=== PATIENT | male | born 1995 | race Caucasian/White ===

== ENCOUNTER 2020-04-21 19:02 | Emergency (ER) | payer MEDICAID, OTHER ==
[~2020-04-21] VITALS: Ht 170.2 cm; Wt 79.4 kg
[2020-04-21 19:10] VITALS: BP_SYST 146
[2020-04-21 20:26] LABS: BASOPHILS # (AUTO) 0.1 K/uL (0.0-0.2); EOSINOPHILS # (AUTO) 1.5 K/uL (0.0-0.4); EOSINOPHILS % (AUTO) 18.7 % (0.0-4.0); HEMATOCRIT 42.3 % (36-54); HEMOGLOBIN 14.5 g/dL (14.0-18.0); LYMPHOCYTES # (AUTO) 0.9 K/uL (1.0-5.5); LYMPHOCYTES % (AUTO) 11.7 % (20.5-51.5); MEAN CORPUSCULAR HEMOGLOBIN 30 pg (27-31); MEAN CORPUSCULAR HGB CONC 34 % (32-36); MEAN CORPUSCULAR VOLUME 87 fL (79.0-98.0); MONOCYTES # (AUTO) 0.2 K/uL (0.0-1.0); NEUTROPHILS # (AUTO) 5.2 K/uL (1.8-7.7); NEUTROPHILS % (AUTO) 65.6 % (40.0-70.0); PLATELET COUNT (AUTO) 271 K/uL (130-430); RED BLOOD CELL COUNT(AUTO) 4.88 MIL/uL (4.2-6.2); RED CELL DISTRIBUTION WIDTH 12.9 % (9.0-15.0)
[2020-04-21 20:45] LABS: CALCIUM 9.3 mg/dL (8.4-11.0); CREATININE 0.83 mg/dL (0.55-1.30); POTASSIUM 4.1 mmol/L (3.5-5.1)
[2020-04-21 20:50] LABS: INR 1.1 (0.80-1.20); PROTHROMBIN TIME 10.9 SECS (9.5-12.5)
[2020-04-21 20:51] LABS: TOTAL BILIRUBIN 0.6 mg/dL (0.0-1.0)
[2020-04-21 21:26] VITALS: BP_SYST 128
== END 2020-04-21 21:26 ==
LOC: SED 19:02
DX: R10.9 Unspecified abdominal pain (principal); I10 Essential (primary) hypertension; E11.9 Type 2 diabetes mellitus without complications
CPT/HCPCS: 36415; 80053; 82150-TC; 83605; 83690-TC; 85025; 85610-TC; 85730-TC; 99283

== ENCOUNTER 2022-07-14 13:41 | Emergency (ER) | payer MEDICAID, OTHER ==
[~2022-07-14] VITALS: Ht 170.2 cm; Wt 77.1 kg
--- NOTE | 2022-07-14 14:07 | NUR ---
PT RECVSD FROM , DR WORKMAN BEDSIDE. PT STS 1 WEEK PRIOR HE CLIMBED ON A FENCE AND GOT HIS FOOT STUCK IN IT. PT PRESENTS WITH R LOWER LEG SWELLING AND REDNESS. INFECTION SUSPECTED. PT AAOX4, RESP E&U, SKIN W&D. PT PLACED INTO GAOWN AND LABS TO BE DRAWN
[2022-07-14 14:08] VITALS: BP_SYST 139
--- NOTE | 2022-07-14 14:08 | NUR ---
Patient to ER bed 2 to gown for evaluation. Side rails up. Report given to FLACA SOLIMAN.
[2022-07-14 14:10] VITALS: BP_SYST 113
[2022-07-14 14:50] LABS: BASOPHILS % (AUTO) 0.4 % (0.0-2.0); EOSINOPHILS # (AUTO) 0.4 K/uL (0.0-0.4); EOSINOPHILS % (AUTO) 6.1 % (0.0-4.0); HEMATOCRIT 41.2 % (36-54); HEMOGLOBIN 13.6 g/dL (14.0-18.0); LYMPHOCYTES # (AUTO) 1.6 K/uL (1.0-5.5); LYMPHOCYTES % (AUTO) 23.5 % (20.5-51.5); MEAN CORPUSCULAR HEMOGLOBIN 28 pg (27-31); MEAN CORPUSCULAR HGB CONC 33 % (32-36); MEAN CORPUSCULAR VOLUME 86 fL (79.0-98.0); MONOCYTES # (AUTO) 0.3 K/uL (0.0-1.0); NEUTROPHILS # (AUTO) 4.4 K/uL (1.8-7.7); PLATELET COUNT (AUTO) 278 K/uL (130-430); RED CELL DISTRIBUTION WIDTH 13.9 % (9.0-15.0); WHITE BLOOD COUNT (AUTO) 6.7 K/uL (4.8-10.8)
[2022-07-14 15:06] LABS: ANION GAP 5 (5-15); CHLORIDE 104 mmol/L (98-107); CREATININE 0.82 mg/dL (0.55-1.30); GFR AFRICAN AMERICAN 145 mL/min (>90); GLUCOSE 129 mg/dL (70-99); UREA NITROGEN, BLOOD 15 mg/dL (8-21)
[2022-07-14 15:11] LABS: ALANINE AMINOTRANSFERASE 49 U/L (12-78); ALBUMIN 3.2 g/dL (3.4-4.8); ASPARTATE AMINOTRANSFERASE 21 U/L (10-37); TOTAL BILIRUBIN 0.4 mg/dL (0.0-1.0)
[2022-07-14 15:17] LABS: C-REACTIVE PROTEIN QUANT < 0.2 mg/dL (0-0.5)
[2022-07-14] MEDS ORDERED: CLIN-22 PO (15:39)
--- NOTE | 2022-07-14 16:20 | NUR ---
Patient given written and verbal discharge instructions and verbalizes understanding. ER MD discussed with patient the results and treatment provided. Patient in stable condition. ID arm band removed. IV catheter removed intact and dressing applied, no active bleeding. Rx of CLINDAMYCIN given. Patient educated on pain management and to follow up with PMD. Pain Scale 2. Opportunity for questions provided and answered. Medication side effect fact sheet provided.
[2022-07-14 17:37] VITALS: BP_SYST 121
== END 2022-07-14 16:20 | disposition home or self-care (01) ==
LOC: SED 13:41
DX: L03.116 Cellulitis of left lower limb (principal); M25.572 Pain in left ankle and joints of left foot; E11.9 Type 2 diabetes mellitus without complications; I10 Essential (primary) hypertension; Z79.899 Other long term (current) drug therapy
CPT/HCPCS: 36415; 80053; 83605; 85025; 86140; 99284

== ENCOUNTER 2023-01-09 21:49 | Emergency (ER) | payer OTHER, MEDICAID ==
[~2023-01-09] VITALS: Ht 170.2 cm; Wt 99.8 kg
[~2023-01-09 21:49] MED LIST: CLIN-22 PO
[2023-01-09 22:11] VITALS: BP_SYST 125; PULSE 64; RESP 18; TEMP 97.2; O2SAT 98
[2023-01-09] MEDS ORDERED: IBUPROFEN 600 MG TABLET PO ONE (22:45)
[2023-01-09] MEDS ORDERED: IBUP-1969 PO (22:50)
[2023-01-09 23:09] VITALS: BP_SYST 125; PULSE 64; RESP 18; TEMP 97.2; O2SAT 98
== END 2023-01-09 23:02 | disposition home or self-care (01) ==
LOC: SED 21:49
DX: S90.821A Blister (nonthermal), right foot, initial encounter (principal); S90.822A Blister (nonthermal), left foot, initial encounter; R60.0 Localized edema; E11.9 Type 2 diabetes mellitus without complications; I10 Essential (primary) hypertension; Z79.899 Other long term (current) drug therapy; X58.XXXA Exposure to other specified factors, initial encounter; Y93.89 Activity, other specified; Y92.89 Other specified places as the place of occurrence of the external cause; Y99.8 Other external cause status
CPT/HCPCS: 99282

== ENCOUNTER 2023-02-14 18:48 | Emergency (ER) | payer MEDICAID, OTHER ==
[~2023-02-14] VITALS: Ht 170.2 cm; Wt 97.5 kg
[~2023-02-14 18:48] MED LIST changes: +IBUP-1969 PO
[2023-02-14 19:09] VITALS: BP_SYST 131; PULSE 93; RESP 18; TEMP 97.6; O2SAT 97
[2023-02-14] MEDS ORDERED: METH-776 PO (19:34)
[2023-02-14] MEDS ORDERED: CYPR4TAB50 PO (19:34)
[2023-02-14] MEDS ORDERED: DEXAMETHASONE SOD PHOSPHATE 10 MG/ML VIAL IM ONE (19:45)
== END 2023-02-14 19:56 | disposition home or self-care (01) ==
LOC: SED 18:48
DX: L20.9 Atopic dermatitis, unspecified (principal); I10 Essential (primary) hypertension; E11.9 Type 2 diabetes mellitus without complications; Z79.899 Other long term (current) drug therapy
CPT/HCPCS: 99283; 96372; J1100

== ENCOUNTER 2023-06-13 15:37 | Emergency (ER) | payer MEDICAID, OTHER ==
[~2023-06-13] VITALS: Ht 170.2 cm; Wt 93.9 kg
[~2023-06-13 15:37] MED LIST changes: +CYPR4TAB50 PO; +METH-776 PO
[2023-06-13 16:24] VITALS: BP_SYST 128; PULSE 86; RESP 18; TEMP 97.5; O2SAT 99
== END 2023-06-13 17:28 | disposition left against medical advice (07) ==
LOC: SED 15:37
DX: R56.9 Unspecified convulsions (principal); Z53.21 Procedure and treatment not carried out due to patient leaving prior to being seen by health care provider
CPT/HCPCS: 99281

== ENCOUNTER 2023-06-28 21:36 | Emergency (ER) | payer MEDICAID, OTHER ==
[~2023-06-28] VITALS: Ht 170.2 cm; Wt 95.3 kg
[2023-06-28 21:49] VITALS: BP_SYST 145; PULSE 110; RESP 16; TEMP 97.9; O2SAT 96
[2023-06-29 00:02] LABS: INFLUENZA TYPE A Negative (NEGATIVE); INFLUENZA TYPE B NEGATIVE (NEGATIVE)
[2023-06-29 00:03] LABS: STREPTOCOCCUS A SCREEN (RAPID) NEGATIVE (NEGATIVE)
[2023-06-29] MEDS: KETOROLAC TROMETHAMINE 15 MG VIAL IM ONE (00:31)
[2023-06-29 00:36] LABS: CALCIUM 8.3 mg/dL (8.4-11.0); CREATININE 0.91 mg/dL (0.55-1.30)
[2023-06-29 00:41] LABS: ALBUMIN 3.3 g/dL (3.4-4.8); BILIRUBIN,DIRECT 0.3 mg/dL (0.0-0.3); TOTAL PROTEIN, SERUM 7.1 g/dL (6.4-8.3)
[2023-06-29 00:42] LABS: BASOPHILS % (AUTO) 0.2 % (0.0-2.0); HEMATOCRIT 38.8 % (36-54); HEMOGLOBIN 13.1 g/dL (14.0-18.0); LYMPHOCYTES # (AUTO) 1.3 K/uL (1.0-5.5); LYMPHOCYTES % (AUTO) 9.2 % (20.5-51.5); MEAN CORPUSCULAR HEMOGLOBIN 28 pg (27-31); MEAN CORPUSCULAR HGB CONC 34 % (32-36); MEAN CORPUSCULAR VOLUME 83 fL (79.0-98.0); MONOCYTES # (AUTO) 1.5 K/uL (0.0-1.0); MONOCYTES % (AUTO) 10.5 % (1.7-9.3); NEUTROPHILS # (AUTO) 11.4 K/uL (1.8-7.7); NEUTROPHILS % (AUTO) 80.1 % (40.0-70.0); PLATELET COUNT (AUTO) 282 K/uL (130-430); RED BLOOD CELL COUNT(AUTO) 4.65 MIL/uL (4.2-6.2); RED CELL DISTRIBUTION WIDTH 13.3 % (9.0-15.0); WHITE BLOOD COUNT (AUTO) 14.2 K/uL (4.8-10.8)
[2023-06-29] MEDS ORDERED: DEXA0.5E2 TP (01:30)
[2023-06-29] MEDS ORDERED: IBUP-1969 PO (01:31)
[2023-06-29] MEDS: POTASSIUM CHLORIDE 20 MEQ TABLET.ER PO ONE (01:37)
[2023-06-29 01:45] VITALS: BP_SYST 145; PULSE 110; RESP 16; TEMP 97.9; O2SAT 96
[2023-06-29] MEDS ORDERED: PENICILLIN G BENZATHINE 1.2 MMU/2 ML SYR IM ONE (01:45)
== END 2023-06-29 01:45 | disposition home or self-care (01) ==
LOC: SED 21:36
DX: K14.0 Glossitis (principal); J02.9 Acute pharyngitis, unspecified; E87.6 Hypokalemia; E11.9 Type 2 diabetes mellitus without complications; I10 Essential (primary) hypertension; Z79.899 Other long term (current) drug therapy; Z20.822 Contact with and (suspected) exposure to COVID-19
CPT/HCPCS: 99284; 71045; 87426; 86592; 80076; 80048; 85025; 86403; 36415; 87081; 87804 ×2; 96372; J1885

== ENCOUNTER 2023-07-09 11:35 | Emergency (ER) | payer MEDICAID, OTHER ==
[~2023-07-09] VITALS: Ht 170.2 cm; Wt 49.9 kg
[~2023-07-09 11:35] MED LIST changes: +DEXA0.5E2 TP
[2023-07-09 11:39] VITALS: BP_SYST 100; PULSE 96; RESP 18; TEMP 98.3; O2SAT 100
[2023-07-09] MEDS: KETOROLAC TROMETHAMINE 60 MG/2 ML VIAL IM ONE (12:25)
[2023-07-09] MEDS: MAG HYDROX/AL HYDROX/SIMETH 30 ML, DICYCLOMINE HCL 20 MG, LIDOCAINE VISCOUS 2% 15ML (PO... PO ONE (12:29)
[2023-07-09] MEDS ORDERED: PANT20TA2 PO (13:05)
[2023-07-09] MEDS ORDERED: TRAM50TA2 PO (13:05)
[2023-07-09] MEDS ORDERED: FLUC200T PO (13:05)
[2023-07-09 14:00] VITALS: BP_SYST 129; PULSE 88; RESP 18; TEMP 98.3; O2SAT 100
== END 2023-07-09 14:02 | disposition home or self-care (01) ==
LOC: SED 11:35
DX: K20.90 Esophagitis, unspecified without bleeding (principal); B37.9 Candidiasis, unspecified; R07.9 Chest pain, unspecified; E11.9 Type 2 diabetes mellitus without complications; I10 Essential (primary) hypertension; Z79.899 Other long term (current) drug therapy
CPT/HCPCS: 99285; 71045; 96372; J1885; J2001